=== PATIENT | male | born 1955 | race Caucasian/White ===

== ENCOUNTER → 2018-06-09 08:15 | Outpatient (CLI) | payer BC, SELFPAY ==
--- NOTE | 2018-06-09 09:35 | PM.TREADMILL ---
Cardiac Stress Test Report Referral & Results Date Patient Seen: 06/09/18 Requesting provider: Jeremie Gurrola Indication: Chest pain with activity Rest ECG: Unremarkable Procedure Note: Today following both written and verbal informed consent the patient was exercised according to a standard Jean protocol patient went for a total of 8 min 26 sec achieving a maximum heart rate of 137 maximum systolic blood pressure of 160. This is approximately 10.1 METS. Exercise was terminated at this point because of ST changes targets were met and mild chest symptoms. Patient was also given Cardiolite through a previously started Hep-Lock IV by the staff nuclear medicine technologist approximately 1 minute prior to the cessation of exercise. Patient did experience to/10 chest discomfort during the procedure that had onset just after the ST segment changes began. There were up to 3 mm of flat to slightly downsloping ST segment depression in leads V4 through V6 with reciprocal changes in inferior leads to a slightly lesser extent. In recovery these ST changes became much more clearly downsloping Occasional PVC and PAC Functional aerobic impairment rated 0 on the active scale Normal heart rate and blood pressure response to exercise Impression: Ischemic changes as above beginning in lateral leads and associated with patient's symptoms Please see perfusion imaging report for details regarding possible ischemia based on that modality Patient was informed of the ECG results and was instructed to seek immediate care for persistent or worsening chest symptoms The positive ECG findings were also discussed with ordering provider, Dr. Gurrola, via phone immediately following the procedure. Please note: Actual ECG tracings can be found in the PACS system.
--- NOTE | 2018-06-09 09:38 | P.PCN_ITS ---
Cardiac Stress Test Report Referral & Results Date Patient Seen: 06/09/18 Requesting provider: Jeremie Gurrola Indication: Chest pain with activity Rest ECG: Unremarkable Procedure Note: Today following both written and verbal informed consent the patient was exercised according to a standard Jean protocol patient went for a total of 8 min 26 sec achieving a maximum heart rate of 137 maximum systolic blood pressure of 160. This is approximately 10.1 METS. Exercise was terminated at this point because of ST changes targets were met and mild chest symptoms. Patient was also given Cardiolite through a previously started Hep-Lock IV by the nuclear logging engineer approximately 1 minute prior to the cessation of exercise. Patient did experience to/10 chest discomfort during the procedure that had onset just after the ST segment changes began. There were up to 3 mm of flat to slightly downsloping ST segment depression in leads V4 through V6 with rec iprocal changes in inferior leads to a slightly lesser extent. In recovery these ST changes became much more clearly downsloping Occasional PVC and PAC Functional aerobic impairment rated 0 on the active scale Normal heart rate and blood pressure response to exercise Impression: Ischemic changes as above beginning in lateral leads and associated with patient's symptoms Please see perfusion imaging report for details regarding possible ischemia based on that modality Patient was informed of the ECG results and was instructed to seek immediate care for persistent or worsening chest symptoms The positive ECG findings were also discussed with ordering provider, Dr. Gurrola, via phone immediately following the procedure. Please note: Actual ECG tracings can be found in the PACS system.
--- NOTE | 2018-06-10 14:27 | DI.NM.S_ITS ---
DATE OF SERVICE: 06/09/2018 PROCEDURE: Exercise perfusion study. INDICATION: Exertional angina with hyperlipidemia. RADIOPHARMACEUTICAL: 24.9 mCi technetium-99m Myoview IV was injected at stress, and 23.9 mCi technetium-99m Myoview was injected at rest. CARDIAC STRESS: Patient underwent exercise Myoview stress test under the supervision of an attending staff, Dr. Gardiner. Patient walked on Jean protocol for 8 minutes 26 seconds, achieved 87% of target heart rate, normal blood pressure response. Patient developed chest discomfort during exercise. Baseline EKG revealed sinus rhythm. During peak exercise, patient had up to 3-[address] depression in inferolateral leads as well as about 1-mm ST elevation in AVR and V1 to V2. Recovery was very prolonged. No significant arrhythmias seen. Functional aerobic impairment 0%. Patient achieved 10.1 METS of workload. RAW DATA: There was increased subdiaphragmatic activity. GATED STUDY: Resting LV ejection fraction 63% and stress LV ejection fraction 59% with hypokinesis of anterior wall septum during stress. TID ratio 1.44, which is abnormal. Resting end-diastolic volume 104 mL. Lung/heart ratio 0.37, which is within normal limits. MYOCARDIAL PERFUSION SCAN: Stress supine, resting supine, and stress prone images were compared to each other. Resting supine images revealed moderate- sized moderately decreased perfusion of inferior wall basal inferior septum, which got completely resolved during prone images, suggestive of diaphragmatic attenuation artifact; however, prone and stress supine images revealed large- sized severely decreased perfusion of anterior wall, anterior apex, as well as anterior septum, which is reversible, suggestive of significant either ostial or proximal LAD disease. CONCLUSION: This is an significantly abnormal myocardial perfusion study, consistent with large severe reversible ischemia of entire anterior wall, anterior septum, anterior apex, suggestive of ostial or proximal LAD disease. Patient also has diaphragmatic tissue attenuation artifact which got improved during prone images. Significant ST depression in inferolateral leads up to 4 mm as well as 1-mm ST elevation in AVR and V1 to V2 during stress. Patient had chest discomfort during exercise. Transient ischemic dilatation with TID ratio 1.4. We cannot rule out possibility of left main disease or multivessel coronary artery disease. I discussed the finding with the patient in the nuclear lab and sent patient to the ER, from where he will be transferred to one of the hospitals where he can have left heart catheterization and possible revascularization. Patient wants to go to [facility]. I spoke to [facility] ER physician, Dr. Jessica, and she will take care of the patient and transfer. Jesus Alberto Tejeda - THO/cristo/donna doc#: [id number]/job#: [id number] dd: 06/10/2018 12:35:00 dt: 06/10/2018 13:46:00 DICTATING MD/COPIES TO: Komal Espinosa MD ; Jeremie Gurrola MD COPIES MNE: CHETAN ; FELI
== END ==
PROVIDERS: Family Provider Family Medicine; PCP Family Medicine; Visit Provider Family Medicine
DX: I20.8 Other forms of angina pectoris (principal); R94.39 Abnormal result of other cardiovascular function study; R94.31 Abnormal electrocardiogram [ECG] [EKG]; E78.5 Hyperlipidemia, unspecified
CPT/HCPCS: 78452; 93016; 93017; 93018; A9502

== ENCOUNTER 2018-06-10 12:30 | Emergency (ER) | payer BC, SELFPAY ==
[2018-06-10 12:36] VITALS: BP 148/86; PULSE 56; RESP 20; TEMP 36.2; O2SAT 100
--- NOTE | 2018-06-10 13:02 | ED.CHESTPAIN ---
HPI - Chest Pain <JOYCE White - Last Filed: 06/10/18 15:29> General Chief Complaint: Chest Pain Stated Complaint: DR RUIZ SAID NEEDS HEART CATH Time Seen by Provider: 06/10/18 13:02 Source: patient Mode of arrival: ambulatory Limitations: no limitations History of Present Illness HPI narrative: 62-year-old male with a history of hyperlipidemia and is a former smoker sent here by Dr. Ruiz due to having a positive results and stress test earlier today. He reports that stress that showed 3mm depressions to the inferior and lateral leads and [address]-elevation to AVR ejection fraction was 59%. Patient denies any chest pain at this time pain. He denies any shortness of breath. He was ambulatory into the emergency room. He was obtaining stress test due to reports of having some mild chest pain while he was going on long walks. No nausea vomiting. No diaphoresis. Patient has no physical complaints at this timeframe. It is requested that he be transferred to a director of cath lab. And be started on heparin drip. MD complaint: other Related Data Home Medications Medication Instructions Recorded Confirmed brimonidine-timolol [Combigan] 1 drp OPHTHALMIC (EYE) DIRECTED 06/10/18 06/10/18 fluticasone propionate 1 spray INTRANASAL DAILY 06/10/18 ropinirole 2 mg PO DAILY 06/10/18 06/10/18 tamsulosin 0.4 mg PO DAILY 06/10/18 06/10/18 Allergies Allergy/AdvReac Type Severity Reaction Status Date / Time No Known Drug Allergies Allergy Verified 06/10/18 13:21 Review of Systems <JOYCE White - Last Filed: 06/10/18 15:29> Constitutional Denies chills, Denies fever(s), Denies lethargy and Denies weakness Eyes Denies change in vision, Denies eye discharge, Denies irritation and Denies loss of vision ENT Ears, Nose, Mouth, and Throat: Denies change in voice, Denies neck pain and Denies sore throat Cardiovascular Denies dyspnea and Denies dyspnea on exertion Comments: ST changes on a stress test Respiratory Denies cough, Denies dyspnea, Denies dyspnea on exertion and Denies wheezing Gastrointestinal Gastrointestinal: Denies abdominal pain, Denies change in bowel habits, Denies diarrhea, Denies nausea and Denies vomiting Genitourinary Denies hematuria, Denies flank pain, Denies urinary incontinence and Denies urinary urgency Musculoskeletal Denies neck pain Integumentary/Breasts Denies pruritus, Denies erythema, Denies rash and Denies wounds Neurologic Denies confusion, Denies loss of vision and Denies weakness Psychiatric Denies anxiety, Denies confusion, Denies depression, Denies homicidal ideation and Denies suicidal ideation Hematologic/Lymphatic Denies easy bruising Allergic/Immunologic Denies wheezing PFSH <JOYCE White - Last Filed: 06/10/18 15:29> Social History Smoking Status: Former smoker Social History Smoking Status: Former smoker Exam <JOYCE White - Last Filed: 06/10/18 15:29> Initial Vital Signs Initial Vital Signs: Vital Signs Temperature 97.2 F L 06/10/18 12:36 Pulse Rate 56 L 06/10/18 12:36 Respiratory Rate 20 06/10/18 12:36 Blood Pressure 148/86 H 06/10/18 12:36 Pulse Oximetry 100 06/10/18 12:36 Const General: cooperative and well developed Nutritional Appearance: well nourished Orientation: alert, awake, oriented x3 and not confused HENVA Mouth: oral mucosae normal and moist mucous membranes Eyes Conjunctivae: conjunctivae normal Sclera: sclerae normal Pupils: PERRL EOM: EOM intact bilaterally Resp Effort & Inspection: normal respiratory effort, able to speak in complete sentences, no respiratory distress and no use of accessory muscles Auscultation: clear to auscultation bilaterally, no rales, no rhonchi and no wheezes Cardio Rate: regular rate Rhythm: regular rhythm Heart Sounds: no click, no gallops, no murmurs and no rubs Pulses: normal peripheral pulses Neuro General: alert, oriented x3, gait normal and no focal motor deficits Speech: speech normal <Luisa Jessica DO - Last Filed: 06/11/18 11:10> Initial Vital Signs Initial Vital Signs: Vital Signs Temperature 97.2 F L 06/10/18 12:36 Pulse Rate 56 L 06/10/18 12:36 Respiratory Rate 20 06/10/18 12:36 Blood Pressure 148/86 H 06/10/18 12:36 Pulse Oximetry 100 06/10/18 12:36 Course <JOYCE White - Last Filed: 06/10/18 15:29> Orders Ordered: Discontinued Medications Aspirin (Aspirin Chew) 324 mg PO NOW ONE Stop: 06/10/18 13:11 Last Admin: 06/10/18 13:32 Dose: 324 mg Heparin Sodium (Porcine) (Heparin) 5,000 unit IV NOW ONE Stop: 06/10/18 13:11 Last Admin: 06/10/18 13:59 Dose: 5,000 unit Heparin Sodium/Dextrose (Heparin Drip) 25,000 unit in 500 mls @ 20 mls/hr IV CONT KIA; Protocol Last Admin: 06/10/18 13:59 Dose: 1,000 units/hr, 20 mls/hr Vital Signs - 8 hr 06/10/18 12:36 06/10/18 14:21 Temperature 97.2 F L Pulse Rate 56 L 64 Respiratory Rate 20 10 L Blood Pressure 148/86 H Blood Pressure [Right Arm] 132/88 Pulse Oximetry 100 97 <Luisa Jessica DO - Last Filed: 06/11/18 11:10> Orders Ordered: Discontinued Medications Aspirin (Aspirin Chew) 324 mg PO NOW ONE Stop: 06/10/18 13:11 Last Admin: 06/10/18 13:32 Dose: 324 mg Heparin Sodium (Porcine) (Heparin) 5,000 unit IV NOW ONE Stop: 06/10/18 13:11 Last Admin: 06/10/18 13:59 Dose: 5,000 unit Heparin Sodium/Dextrose (Heparin Drip) 25,000 unit in 500 mls @ 20 mls/hr IV CONT KIA; Protocol Last Admin: 06/10/18 13:59 Dose: 1,000 units/hr, 20 mls/hr Vital Signs - 8 hr 06/10/18 12:36 06/10/18 14:21 Temperature 97.2 F L Pulse Rate 56 L 64 Respiratory Rate 20 10 L Blood Pressure 148/86 H Blood Pressure [Right Arm] 132/88 Pulse Oximetry 100 97 MDM - Chest Pain <JOYCE White - Last Filed: 06/10/18 15:29> Lab Data Result diagrams: 06/10/18 13:30 06/10/18 13:30 Lab Results 06/10/18 06/10/18 Range/Units 13:30 13:30 WBC 7.3 (4.5-11.0) X10^3/uL RBC 5.20 (4.5-5.9) X10^6/uL Hgb 15.8 (13.5-17.5) g/dL Hct 47.3 (41-53) % MCV 90.9 (80-100) fL MCH 30.3 (26-34) PG MCHC 33.3 (30-36) % RDW 13.8 (11.6-14.8) % Plt Count 187 (150-400) X10^3/uL Neut % (Auto) 57.5 (50-75) % Lymph % (Auto) 30.5 (25-40) % [place] % (Auto) 8.9 (3-14) % Eos % (Auto) 2.3 (2-4) % Baso % (Auto) 0.8 (0-2) % Neut # (Auto) 4200 (7125-9837) /uL Lymph # (Auto) 2200 (7593-0116) /uL [place] # (Auto) 600 (0-900) /uL Eos # (Auto) 200 (0-450) /uL Baso # (Auto) 100 (0-100) /uL Sodium 140 (137-145) mmol/L Potassium 4.3 (3.4-5.1) mmol/L Chloride 104 (98-107) mmol/L Carbon Dioxide 25 (22-32) mmol/L BUN 20 (9-20) mg/dL Creatinine 0.80 (0.66-1.25) mg/dL Estimated GFR > 60.0 (>60) mL/min BUN/Creatinine Ratio 25.0 H (6-22) Glucose 101 (80-110) mg/dL Calcium 9.5 (8.4-10.2) mg/dL Total Bilirubin 0.6 (0.2-1.3) mg/dL AST 22 (17-59) IU/L ALT 31 (21-72) IU/L Alkaline Phosphatase 66 (38-126) U/L Total Creatine Kinase 77 (55-170) U/L CK-MB (CK-2) TNP CK-MB (CK-2) Rel Index TNP Troponin I < 0.012 (0.01-0.034) ng/mL Total Protein 7.8 (6.3-8.2) g/dL Albumin 4.6 (3.5-5.0) g/dL Globulin 3.2 (1.7-4.1) g/dL Albumin/Globulin Ratio 1.4 (1.0-2.8) Lipase 52 (23-300) U/L Urine Dip Bedside Urine Glucose Negative Bedside Urine Bilirubin - Negative Bedside Urine Ketone - Negative Urine Specific [place] 1.015 Bedside Urine Occult Blood - Negative Bedside Urine pH 6.5 Bedside Urine Protein - Negative Bedside Urine Urobilinogen - Negative Bedside Urine Nitrite - Negative Bedside Urine Leukocytes - Negative Esterase Imaging Data Chest x-ray: Radiologist's impression: [address] [address] XRay Report Signed Patient: Jesus Alberto Tejeda EMR#: [id number] : 5Acct:[id number] Age/Sex: 62 / MDate of Service: 06/10/18 Loc: ED Accession Number: [id number] Procedure: XR chest 1V Ordering Provider: Kristopher Cobb PROCEDURE: XR CHEST 1V INDICATIONS: Positive stress test today TECHNIQUE: One view of the chest was acquired. COMPARISON: None. FINDINGS: Surgical changes and devices: None. Lungs and pleura: There is minimal blunting of the left costophrenic angle. Mediastinum: Mediastinal contours appear normal. Heart size is minimally prominent. Bones and chest wall: No suspicious bony lesions. Overlying soft tissues appear unremarkable. IMPRESSION: Minimal blunting of the left costophrenic angle possibly related to scarring versus trace effusion. Dictated by: Rosana Roque M.D. on 06/10/2018 at 12:30 Approved by: Rosana Roque M.D. on 06/10/2018 at 12:31 ECG Data Interpretation: EKG shows sinus bradycardia with no ST elevation or depression. No ectopy. Ventricular rate of 58. Pr interval 157. QRS duration of 92. QTC of 422 P Surgical changes and devices: None. MDM Narrative Medical decision making narrative: Stress test today showed ST elevation and depression changes. Dr. nakita shah was called into the room to see the changes and he was very concerned about the changes he saw and requested the patient get sent to cardiac director of cath lab and get placed on heparin. Patient does not desire to go to [facility] he would rather go to [place] or to [facility]. EKG in the emergency room shows sinus rhythm with no ST elevation or depression. No ectopy. Patient is not complaining of chest pain at this time. CBC and Chem panel were obtained were unremarkable. Cardiac enzymes were obtained and were negative. Heparin was initiated in the emergency room. Chest x-ray was obtained and was unremarkable. Discussed case with cardiology at [facility] who accepted patient he is transferred to [facility] for catheterization and further evaluation. Patient is sent via [facility] <Luisa Jessica DO - Last Filed: 06/11/18 11:10> Lab Data Attestation: I reviewed the patient's lab results. Lab Results 06/10/18 06/10/18 Range/Units 13:30 13:30 WBC 7.3 (4.5-11.0) X10^3/uL RBC 5.20 (4.5-5.9) X10^6/uL Hgb 15.8 (13.5-17.5) g/dL Hct 47.3 (41-53) % MCV 90.9 (80-100) fL MCH 30.3 (26-34) PG MCHC 33.3 (30-36) % RDW 13.8 (11.6-14.8) % Plt Count 187 (150-400) X10^3/uL Neut % (Auto) 57.5 (50-75) % Lymph % (Auto) 30.5 (25-40) % [place] % (Auto) 8.9 (3-14) % Eos % (Auto) 2.3 (2-4) % Baso % (Auto) 0.8 (0-2) % Neut # (Auto) 4200 (9380-7157) /uL Lymph # (Auto) 2200 (3263-4836) /uL [place] # (Auto) 600 (0-900) /uL Eos # (Auto) 200 (0-450) /uL Baso # (Auto) 100 (0-100) /uL Sodium 140 (137-145) mmol/L Potassium 4.3 (3.4-5.1) mmol/L Chloride 104 (98-107) mmol/L Carbon Dioxide 25 (22-32) mmol/L BUN 20 (9-20) mg/dL Creatinine 0.80 (0.66-1.25) mg/dL Estimated GFR > 60.0 (>60) mL/min BUN/Creatinine Ratio 25.0 H (6-22) Glucose 101 (80-110) mg/dL Calcium 9.5 (8.4-10.2) mg/dL Total Bilirubin 0.6 (0.2-1.3) mg/dL AST 22 (17-59) IU/L ALT 31 (21-72) IU/L Alkaline Phosphatase 66 (38-126) U/L Total Creatine Kinase 77 (55-170) U/L CK-MB (CK-2) TNP CK-MB (CK-2) Rel Index TNP Troponin I < 0.012 (0.01-0.034) ng/mL Total Protein 7.8 (6.3-8.2) g/dL Albumin 4.6 (3.5-5.0) g/dL Globulin 3.2 (1.7-4.1) g/dL Albumin/Globulin Ratio 1.4 (1.0-2.8) Lipase 52 (23-300) U/L Urine Dip Bedside Urine Glucose Negative Bedside Urine Bilirubin - Negative Bedside Urine Ketone - Negative Urine Specific [place] 1.015 Bedside Urine Occult Blood - Negative Bedside Urine pH 6.5 Bedside Urine Protein - Negative Bedside Urine Urobilinogen - Negative Bedside Urine Nitrite - Negative Bedside Urine Leukocytes - Negative Esterase ECG Data Attestation: I personally reviewed and interpreted this ECG as follows: Prior ECG tracings: not available for review Interpretation: Normal sinus rhythm rate [address] changes a no T-wave inversion MDM Narrative Medical decision making narrative: There was some difficulty getting patient to [facility]. The stress test was not yet dictated cardiology called prior to patient's arrival to the ED and read to me what the stress test showed. It was recommended by the reading stress test supervisor inspecting , patient immediately be started on been given aspirin and treated for acute coronary syndrome. Eventually supervisor inspecting spoke to each other and patient was transferred without problem to [facility]. Discharge Plan Departure Patient Disposition: [facility] Clinical Impression: Abnormal cardiovascular stress test Discharge Date/Time: 06/10/18 18:38 Interventions: ED Discharge Assessment Last Done: 06/10/18 18:36 Prescriptions: No Action tamsulosin 0.4 mg capsule 0.4 mg PO DAILY RF: 0 ropinirole 2 mg tablet 2 mg PO DAILY RF: 0 Combigan 0.2-0.5 % drops 1 drp ophthalmic (eye) DIRECTED RF: 0 fluticasone propionate 16 GM spray,suspension 1 spray Intranasal DAILY RF: 0 Referrals: Jeremie Gurrola MD [Primary Care Provider] - <Luisa Jessica DO - Last Filed: 06/11/18 11:10> Cosign ED Attending Cosignature Attestation: I was immediately available in the department for consultation. Documentation has been reviewed. I agree with assessment and plan.
--- NOTE | 2018-06-10 13:11 | DI.RAD.S_ITS ---
PROCEDURE: XR CHEST 1V INDICATIONS: Positive stress test today TECHNIQUE: One view of the chest was acquired. COMPARISON: None. FINDINGS: Surgical changes and devices: None. Lungs and pleura: There is minimal blunting of the left costophrenic angle. Mediastinum: Mediastinal contours appear normal. Heart size is minimally prominent. Bones and chest wall: No suspicious bony lesions. Overlying soft tissues appear unremarkable. IMPRESSION: Minimal blunting of the left costophrenic angle possibly related to scarring versus trace effusion. Dictated by: Rosana Roque M.D. on 06/10/2018 at 12:30 Approved by: Rosana Roque M.D. on 06/10/2018 at 12:31
[2018-06-10] MEDS: ASPIRIN 81 MG TAB 324 MG PO (13:32)
[2018-06-10 13:37] LABS: Add Manual Diff / Slide Review NO; Basophils Absolute Auto 100 /uL (0-100); Basophils Percent Auto 0.8 % (0-2); Eosinophils Absolute Auto 200 /uL (0-450); Eosinophils Percent Auto 2.3 % (2-4); Hematocrit 47.3 % (41-53); Hemoglobin 15.8 g/dL (13.5-17.5); Lymphocytes Absolute Auto 2200 /uL (1100-4500); Lymphocytes Percent Auto 30.5 % (25-40); Mean Corpuscular HGB Conc 33.3 % (30-36); Mean Corpuscular Hemoglobin 30.3 PG (26-34); Mean Corpuscular Volume 90.9 fL (80-100); Monocytes Absolute Auto 600 /uL (0-900); Monocytes Percent Auto 8.9 % (3-14); Neutrophils Absolute Auto 4200 /uL (1500-7000); Neutrophils Percent Auto 57.5 % (50-75); Platelet Count 187 X10^3/uL (150-400); Red Cell Distribution Width 13.8 % (11.6-14.8); White Blood Cell Count 7.3 X10^3/uL (4.5-11.0)
[2018-06-10 13:50] LABS: Alanine Aminotransferase 31 IU/L (21-72); Albumin 4.6 g/dL (3.5-5.0); Albumin Globulin Ratio 1.4 (1.0-2.8); Alkaline Phosphatase 66 U/L (38-126); Aspartate Aminotransferase 22 IU/L (17-59); Bilirubin Total 0.6 mg/dL (0.2-1.3); Blood Urea Nitrogen 20 mg/dL (9-20); Calcium 9.5 mg/dL (8.4-10.2); Carbon Dioxide 25 mmol/L (22-32); Chloride 104 mmol/L (98-107); Creatine Kinase 77 U/L (55-170); Estimated Glomerular Filt Rate > 60.0 mL/min (>60); Globulin 3.2 g/dL (1.7-4.1); Glucose 101 mg/dL (80-110); HEMOLYSIS 20 (0-50); Lipase 52 U/L (23-300); Potassium 4.3 mmol/L (3.4-5.1); Sodium 140 mmol/L (137-145); Total Protein 7.8 g/dL (6.3-8.2)
--- NOTE | 2018-06-10 13:58 | ED_ITS ---
HPI - Chest Pain <JOYCE White - Last Filed: 06/10/18 15:29> General Chief Complaint: Chest Pain Stated Complaint: DR RUIZ SAID NEEDS HEART CATH Time Seen by Provider: 06/10/18 13:02 Source: patient Mode of arrival: ambulatory Limitations: no limitations History of Present Illness HPI narrative: 62-year-old male with a history of hyperlipidemia and is a former smoker sent here by Dr. Ruiz due to having a positive results and stress test earlier today. He reports that stress that showed 3mm depressions to the inferior and lateral leads and [address]-elevation to AVR ejection fraction was 59%. Patient denies any chest pain at this time pain. He denies any shortness of breath. He was ambulatory into the emergency room. He was obtaining stress test due to reports of having some mild chest pain while he was going on long walks. No nausea vomiting. No diaphoresis. Patient has no physical complaints at this timeframe. It is requested that he be transferred to a ammunition assembly laborer. And be started on heparin drip. MD complaint: other Related Data Home Medications Medication Instructions Recorded Confirmed brimonidine-timolol [Combigan] 1 drp OPHTHALMIC (EYE) DIRECTED 06/10/18 06/10/18 fluticasone propionate 1 spray INTRANASAL DAILY 06/10/18 ropinirole 2 mg PO DAILY 06/10/18 06/10/18 tamsulosin 0.4 mg PO DAILY 06/10/18 06/10/18 Allergies Allergy/AdvReac Type Severity Reaction Status Date / Time No Known Drug Allergies Allergy Verified 06/10/18 13:21 Review of Systems <JOYCE White - Last Filed: 06/10/18 15:29> Constitutional Denies chills, Denies fever(s), Denies lethargy and Denies weakness Eyes Denies change in vision, Denies eye discharge, Denies irritation and Denies loss of vision ENT Ears, Nose, Mouth, and Throat: Denies change in voice, Denies neck pain and Denies sore throat Cardiovascular Denies dyspnea and Denies dyspnea on exertion Comments: ST changes on a stress test Respiratory Denies cough, Denies dyspnea, Denies dyspnea on exertion and Denies wheezing Gastrointestinal Gastrointestinal: Denies abdominal pain, Denies change in bowel habits, Denies diarrhea, Denies nausea and Denies vomiting Genitourinary Denies hematuria, Denies flank pain, Denies urinary incontinence and Denies urinary urgency Musculoskeletal Denies neck pain Integumentary/Breasts Denies pruritus, Denies erythema, Denies rash and Denies wounds Neurologic Denies confusion, Denies loss of vision and Denies weakness Psychiatric Denies anxiety, Denies confusion, Denies depression, Denies homicidal ideation and Denies suicidal ideation Hematologic/Lymphatic Denies easy bruising Allergic/Immunologic Denies wheezing PFSH <JOYCE White - Last Filed: 06/10/18 15:29> Social History Smoking Status: Former smoker Social History Smoking Status: Former smoker Exam <JOYCE White - Last Filed: 06/10/18 15:29> Initial Vital Signs Initial Vital Signs: Vital Signs Temperature 97.2 F L 06/10/18 12:36 Pulse Rate 56 L 06/10/18 12:36 Respiratory Rate 20 06/10/18 12:36 Blood Pressure 148/86 H 06/10/18 12:36 Pulse Oximetry 100 06/10/18 12:36 Const General: cooperative and well developed Nutritional Appearance: well nourished Orientation: alert, awake, oriented x3 and not confused HENNH Mouth: oral mucosae normal and moist mucous membranes Eyes Conjunctivae: conjunctivae normal Sclera: sclerae normal Pupils: PERRL EOM: EOM intact bilaterally Resp Effort & Inspection: normal respiratory effort, able to speak in complete sentences, no respiratory distress and no use of accessory muscles Auscultation: clear to auscultation bilaterally, no rales, no rhonchi and no wheezes Cardio Rate: regular rate Rhythm: regular rhythm Heart Sounds: no click, no gallops, no murmurs and no rubs Pulses: normal peripheral pulses Neuro General: alert, oriented x3, gait normal and no focal motor deficits Speech: speech normal <Luisa Jessica DO - Last Filed: 06/11/18 11:10> Initial Vital Signs Initial Vital Signs: Vital Signs Temperature 97.2 F L 06/10/18 12:36 Pulse Rate 56 L 06/10/18 12:36 Respiratory Rate 20 06/10/18 12:36 Blood Pressure 148/86 H 06/10/18 12:36 Pulse Oximetry 100 06/10/18 12:36 Course <JOYCE White - Last Filed: 06/10/18 15:29> Orders Ordered: Discontinued Medications Aspirin (Aspirin Chew) 324 mg PO NOW ONE Stop: 06/10/18 13:11 Last Admin: 06/10/18 13:32 Dose: 324 mg Heparin Sodium (Porcine) (Heparin) 5,000 unit IV NOW ONE Stop: 06/10/18 13:11 Last Admin: 06/10/18 13:59 Dose: 5,000 unit Heparin Sodium/Dextrose (Heparin Drip) 25,000 unit in 500 mls @ 20 mls/hr IV CONT KIA; Protocol Last Admin: 06/10/18 13:59 Dose: 1,000 units/hr, 20 mls/hr Vital Signs - 8 hr 06/10/18 12:36 06/10/18 14:21 Temperature 97.2 F L Pulse Rate 56 L 64 Respiratory Rate 20 10 L Blood Pressure 148/86 H Blood Pressure [Right Arm] 132/88 Pulse Oximetry 100 97 <Luisa Jessica DO - Last Filed: 06/11/18 11:10> Orders Ordered: Discontinued Medications Aspirin (Aspirin Chew) 324 mg PO NOW ONE Stop: 06/10/18 13:11 Last Admin: 06/10/18 13:32 Dose: 324 mg Heparin Sodium (Porcine) (Heparin) 5,000 unit IV NOW ONE Stop: 06/10/18 13:11 Last Admin: 06/10/18 13:59 Dose: 5,000 unit Heparin Sodium/Dextrose (Heparin Drip) 25,000 unit in 500 mls @ 20 mls/hr IV CONT KIA; Protocol Last Admin: 06/10/18 13:59 Dose: 1,000 units/hr, 20 mls/hr Vital Signs - 8 hr 06/10/18 12:36 06/10/18 14:21 Temperature 97.2 F L Pulse Rate 56 L 64 Respiratory Rate 20 10 L Blood Pressure 148/86 H Blood Pressure [Right Arm] 132/88 Pulse Oximetry 100 97 MDM - Chest Pain <JOYCE White - Last Filed: 06/10/18 15:29> Lab Data Result diagrams: 06/10/18 13:30 06/10/18 13:30 Lab Results 06/10/18 06/10/18 Range/Units 13:30 13:30 WBC 7.3 (4.5-11.0) X10^3/uL RBC 5.20 (4.5-5.9) X10^6/uL Hgb 15.8 (13.5-17.5) g/dL Hct 47.3 (41-53) % MCV 90.9 (80-100) fL MCH 30.3 (26-34) PG MCHC 33.3 (30-36) % RDW 13.8 (11.6-14.8) % Plt Count 187 (150-400) X10^3/uL Neut % (Auto) 57.5 (50-75) % Lymph % (Auto) 30.5 (25-40) % [place] % (Auto) 8.9 (3-14) % Eos % (Auto) 2.3 (2-4) % Baso % (Auto) 0.8 (0-2) % Neut # (Auto) 4200 (3836-1038) /uL Lymph # (Auto) 2200 (6826-1456) /uL [place] # (Auto) 600 (0-900) /uL Eos # (Auto) 200 (0-450) /uL Baso # (Auto) 100 (0-100) /uL Sodium 140 (137-145) mmol/L Potassium 4.3 (3.4-5.1) mmol/L Chloride 104 (98-107) mmol/L Carbon Dioxide 25 (22-32) mmol/L BUN 20 (9-20) mg/dL Creatinine 0.80 (0.66-1.25) mg/dL Estimated GFR > 60.0 (>60) mL/min BUN/Creatinine Ratio 25.0 H (6-22) Glucose 101 (80-110) mg/dL Calcium 9.5 (8.4-10.2) mg/dL Total Bilirubin 0.6 (0.2-1.3) mg/dL AST 22 (17-59) IU/L ALT 31 (21-72) IU/L Alkaline Phosphatase 66 (38-126) U/L Total Creatine Kinase 77 (55-170) U/L CK-MB (CK-2) TNP CK-MB (CK-2) Rel Index TNP Troponin I < 0.012 (0.01-0.034) ng/mL Total Protein 7.8 (6.3-8.2) g/dL Albumin 4.6 (3.5-5.0) g/dL Globulin 3.2 (1.7-4.1) g/dL Albumin/Globulin Ratio 1.4 (1.0-2.8) Lipase 52 (23-300) U/L Urine Dip Bedside Urine Glucose Negative Bedside Urine Bilirubin - Negative Bedside Urine Ketone - Negative Urine Specific [place] 1.015 Bedside Urine Occult Blood - Negative Bedside Urine pH 6.5 Bedside Urine Protein - Negative Bedside Urine Urobilinogen - Negative Bedside Urine Nitrite - Negative Bedside Urine Leukocytes - Negative Esterase Imaging Data Chest x-ray: Radiologist's impression: [address] [address] XRay Report Signed Patient: Jesus Alberto Tejeda EMR#: [id number] : 5Acct:[id number] Age/Sex: 62 / MDate of Service: 06/10/18 Loc: ED Accession Number: [id number] Procedure: XR chest 1V Ordering Provider: Kristopher Cobb PROCEDURE: XR CHEST 1V INDICATIONS: Positive stress test today TECHNIQUE: One view of the chest was acquired. COMPARISON: None. FINDINGS: Surgical changes and devices: None. Lungs and pleura: There is minimal blunting of the left costophrenic angle. Mediastinum: Mediastinal contours appear normal. Heart size is minimally prominent. Bones and chest wall: No suspicious bony lesions. Overlying soft tissues appear unremarkable. IMPRESSION: Minimal blunting of the left costophrenic angle possibly related to scarring versus trace effusion. Dictated by: Rosana Roque M.D. on 06/10/2018 at 12:30 Approved by: Rosana Roque M.D. on 06/10/2018 at 12:31 ECG Data Interpretation: EKG shows sinus bradycardia with no ST elevation or depression. No ectopy. Ventricular rate of 58. Pr interval 157. QRS duration of 92. QTC of 422 P Surgical changes and devices: None. MDM Narrative Medical decision making narrative: Stress test today showed ST elevation and depression changes. Dr. nakita shah was called into the room to see the changes and he was very concerned about the changes he saw and requested the patient get sent to cardiac ammunition assembly laborer and get placed on heparin. Patient does not desire to go to [facility] he would rather go to [facility] or to [facility]. EKG in the emergency room shows sinus rhythm with no ST elevation or depression. No ectopy. Patient is not complaining of chest pain at this time. CBC and Chem panel were obtained were unremarkable. Cardiac enzymes were obtained and were negative. Heparin was initiated in the emergency room. Chest x-ray was obtained and was unremarkable. Discussed case with cardiology at [facility] who accepted patient he is transferred to [facility] for catheterization and further evaluation. Patient is sent via [facility] <Luisa Jessica DO - Last Filed: 06/11/18 11:10> Lab Data Attestation: I reviewed the patient's lab results. Lab Results 06/10/18 06/10/18 Range/Units 13:30 13:30 WBC 7.3 (4.5-11.0) X10^3/uL RBC 5.20 (4.5-5.9) X10^6/uL Hgb 15.8 (13.5-17.5) g/dL Hct 47.3 (41-53) % MCV 90.9 (80-100) fL MCH 30.3 (26-34) PG MCHC 33.3 (30-36) % RDW 13.8 (11.6-14.8) % Plt Count 187 (150-400) X10^3/uL Neut % (Auto) 57.5 (50-75) % Lymph % (Auto) 30.5 (25-40) % [place] % (Auto) 8.9 (3-14) % Eos % (Auto) 2.3 (2-4) % Baso % (Auto) 0.8 (0-2) % Neut # (Auto) 4200 (9116-1544) /uL Lymph # (Auto) 2200 (5059-9566) /uL [place] # (Auto) 600 (0-900) /uL Eos # (Auto) 200 (0-450) /uL Baso # (Auto) 100 (0-100) /uL Sodium 140 (137-145) mmol/L Potassium 4.3 (3.4-5.1) mmol/L Chloride 104 (98-107) mmol/L Carbon Dioxide 25 (22-32) mmol/L BUN 20 (9-20) mg/dL Creatinine 0.80 (0.66-1.25) mg/dL Estimated GFR > 60.0 (>60) mL/min BUN/Creatinine Ratio 25.0 H (6-22) Glucose 101 (80-110) mg/dL Calcium 9.5 (8.4-10.2) mg/dL Total Bilirubin 0.6 (0.2-1.3) mg/dL AST 22 (17-59) IU/L ALT 31 (21-72) IU/L Alkaline Phosphatase 66 (38-126) U/L Total Creatine Kinase 77 (55-170) U/L CK-MB (CK-2) TNP CK-MB (CK-2) Rel Index TNP Troponin I < 0.012 (0.01-0.034) ng/mL Total Protein 7.8 (6.3-8.2) g/dL Albumin 4.6 (3.5-5.0) g/dL Globulin 3.2 (1.7-4.1) g/dL Albumin/Globulin Ratio 1.4 (1.0-2.8) Lipase 52 (23-300) U/L Urine Dip Bedside Urine Glucose Negative Bedside Urine Bilirubin - Negative Bedside Urine Ketone - Negative Urine Specific [place] 1.015 Bedside Urine Occult Blood - Negative Bedside Urine pH 6.5 Bedside Urine Protein - Negative Bedside Urine Urobilinogen - Negative Bedside Urine Nitrite - Negative Bedside Urine Leukocytes - Negative Esterase ECG Data Attestation: I personally reviewed and interpreted this ECG as follows: Prior ECG tracings: not available for review Interpretation: Normal sinus rhythm rate [address] changes a no T-wave inversion MDM Narrative Medical decision making narrative: There was some difficulty getting patient to [facility]. The stress test was not yet dictated cardiology called prior to patient's arrival to the ED and read to me what the stress test showed. It was recommended by the reading stress test toby maker , patient immediately be started on been given aspirin and treated for acute coronary syndrome. Eventually toby maker spoke to each other and patient was transferred without problem to [facility]. Discharge Plan Departure Patient Disposition: [facility] Clinical Impression: Abnormal cardiovascular stress test Discharge Date/Time: 06/10/18 18:38 Interventions: ED Discharge Assessment Last Done: 06/10/18 18:36 Prescriptions: No Action tamsulosin 0.4 mg capsule 0.4 mg PO DAILY RF: 0 ropinirole 2 mg tablet 2 mg PO DAILY RF: 0 Combigan 0.2-0.5 % drops 1 drp ophthalmic (eye) DIRECTED RF: 0 fluticasone propionate 16 GM spray,suspension 1 spray Intranasal DAILY RF: 0 Referrals: Jeremie Gurrola MD [Primary Care Provider] - <Luisa Jessica DO - Last Filed: 06/11/18 11:10> Cosign ED Attending Cosignature Attestation: I was immediately available in the department for consultation. Documentation has been reviewed. I agree with assessment and plan.
[2018-06-10] MEDS: HEPARIN 5,000 UNIT/ML VIAL 5000 UNIT IV (13:59)
[2018-06-10] MEDS: HEPARIN DRIP 25,000 UNIT/500 ML IV.SOLN 20 UNIT IV (13:59)
[2018-06-10 14:01] LABS: Troponin I < 0.012 ng/mL (0.01-0.034)
--- NOTE | 2018-06-10 14:12 | PC.NURSE ---
PT with stress test yesterday and today. was sent to Er for positive stress test. Denies any pain at this time.
[2018-06-10 14:21] VITALS: BP 132/88; PULSE 64; RESP 10; O2SAT 97
[2018-06-10 14:30] VITALS: BP 129/75; PULSE 60; RESP 13; O2SAT 97
[2018-06-10 16:45] VITALS: BP 121/79; PULSE 68; RESP 14; O2SAT 95
[2018-06-10 17:30] VITALS: BP 151/94; PULSE 74; RESP 16; O2SAT 94
[2018-06-10 18:00] VITALS: BP 145/86; PULSE 74; RESP 18; O2SAT 95
== END 2018-06-10 18:38 | disposition short-term general hospital (02) ==
PROVIDERS: Emergency Provider Nurse Practitioner Family; PCP Family Medicine
DX: R94.39 Abnormal result of other cardiovascular function study (principal)
CPT/HCPCS: 36591; 71045; 80053; 81003; 82550; 83690; 84484; 85025; 93005; 96365; 96366; 96375; 99283; 99285; J1644

== ENCOUNTER → 2018-10-10 07:45 | Outpatient (CLI) | payer BC, SELFPAY ==
[2018-10-10 08:29] LABS: Hemoglobin A1C% w Est Avg Glu 5.7 % (4.0-6.0)
[2018-10-10 08:31] LABS: Add Manual Diff / Slide Review NO; Basophils Absolute Auto 0 /uL (0-100); Basophils Percent Auto 0.8 % (0-2); Eosinophils Absolute Auto 200 /uL (0-450); Eosinophils Percent Auto 2.5 % (2-4); Hematocrit 44.2 % (41-53); Hemoglobin 14.8 g/dL (13.5-17.5); Lymphocytes Absolute Auto 1900 /uL (1100-4500); Lymphocytes Percent Auto 30.7 % (25-40); Mean Corpuscular HGB Conc 33.4 % (30-36); Monocytes Absolute Auto 600 /uL (0-900); Neutrophils Absolute Auto 3500 /uL (1500-7000); Platelet Count 172 X10^3/uL (150-400); Red Blood Cell Count 4.75 X10^6/uL (4.5-5.9); Red Cell Distribution Width 13.9 % (11.6-14.8); White Blood Cell Count 6.2 X10^3/uL (4.5-11.0)
[2018-10-10 08:36] LABS: Alanine Aminotransferase 39 IU/L (21-72); Albumin 4.3 g/dL (3.5-5.0); Albumin Globulin Ratio 1.4 (1.0-2.8); Alkaline Phosphatase 69 U/L (38-126); Aspartate Aminotransferase 67 IU/L (17-59); BUN Creatinine Ratio 28.8 (6-22); Bilirubin Total 0.7 mg/dL (0.2-1.3); Blood Urea Nitrogen 23 mg/dL (9-20); C-Reactive Protein Quant 0.5 mg/dL (<1.0); Calcium 9.5 mg/dL (8.4-10.2); Carbon Dioxide 27 mmol/L (22-32); Chloride 102 mmol/L (98-107); Cholesterol 122 mg/dL (140-199); Estimated Glomerular Filt Rate > 60.0 mL/min (>60); Globulin 3.1 g/dL (1.7-4.1); Glucose 115 mg/dL (80-110); HDL Cholesterol 39 mg/dL (40-60); HEMOLYSIS < 15 (0-50); LDL Cholesterol Calculated 68 mg/dL (<100); Potassium 4.3 mmol/L (3.4-5.1); Sodium 137 mmol/L (137-145); Total Protein 7.4 g/dL (6.3-8.2); Triglycerides 73 mg/dL (35-150)
[2018-10-10 08:51] LABS: Vitamin D 25 Hydroxy (D3) 46.2 ng/mL (30.0-100.0)
[2018-10-10 08:52] LABS: Free T3, Triiodothyronine Free 4.13 pg/mL (2.77-5.27); Free T4, Direct Thyroxine 0.85 ng/dL (0.78-2.19)
[2018-10-10 09:09] LABS: Ferritin 74.5 ng/mL (17.9-464)
[2018-10-10 09:39] LABS: Folate 11.6 ng/mL (2.76-20.0); Vitamin B12 391 pg/mL (239-931)
[2018-10-12 16:15] LABS: PSA, Total 0.4 ng/mL (< 4.1)
[2018-10-13 09:17] LABS: Insulin Level Total 4.2 uIU/mL (2.0-19.6)
[2018-10-14 13:52] LABS: Homocysteine 10.2 umol/L (< 11.4)
== END ==
PROVIDERS: Visit Provider Acupuncturist
DX: I51.9 Heart disease, unspecified (principal); Z82.49 Family history of ischemic heart disease and other diseases of the circulatory system; R07.9 Chest pain, unspecified; Z13.6 Encounter for screening for cardiovascular disorders; Z13.1 Encounter for screening for diabetes mellitus
CPT/HCPCS: 36415; 80053; 80061; 82306; 82607; 82728; 82746; 83036; 83090; 83525; 84153; 84154; 84439; 84443; 84481; 85025; 86140

== ENCOUNTER → 2018-12-08 10:06 | Outpatient (CLI) | payer BC, SELFPAY ==
--- NOTE | 2018-12-08 | DI.RAD.S_ITS ---
PROCEDURE: XR CALCANEOUS LT MIN 2V INDICATIONS: LEFT HEEL PAIN TECHNIQUE: Two views of the calcaneus were acquired. COMPARISON: None. FINDINGS: Bones: No fractures or dislocations. No suspicious bony lesions. Soft tissues: No suspicious calcifications. Achilles tendon appears normal. IMPRESSION: Normal calcaneus plain films. Dictated by: Nolan Mckinney M.D. on 12/08/2018 at 11:05 Approved by: Nolan Mckinney M.D. on 12/08/2018 at 11:05
== END ==
PROVIDERS: PCP Student in an Organized Health Care Education/Training Program; Visit Provider Student in an Organized Health Care Education/Training Program
DX: M79.672 Pain in left foot (principal)
CPT/HCPCS: 73650

== ENCOUNTER → 2019-07-12 07:06 | Outpatient (CLI) | payer BC, SELFPAY ==
[2019-07-12 08:46] LABS: Alanine Aminotransferase 20 IU/L (<50); Albumin 4.6 g/dL (3.5-5.0); Albumin Globulin Ratio 1.4 (1.0-2.8); Alkaline Phosphatase 71 U/L (38-126); Aspartate Aminotransferase 25 IU/L (17-59); BUN Creatinine Ratio 23.9 (6-22); Bilirubin Total 0.5 mg/dL (0.2-1.3); Blood Urea Nitrogen 22 mg/dL (9-20); C-Reactive Protein Quant < 0.5 mg/dL (<1.0); Calcium 9.7 mg/dL (8.4-10.2); Carbon Dioxide 26 mmol/L (22-32); Chloride 105 mmol/L (98-107); Cholesterol 201 mg/dL (140-199); Estimated Glomerular Filt Rate > 60.0 mL/min (>60); Globulin 3.3 g/dL (1.7-4.1); Glucose 126 mg/dL (80-110); HDL Cholesterol 36 mg/dL (40-60); HEMOLYSIS < 15 (0-50); LDL Cholesterol Calculated 145 mg/dL (<100); Potassium 4.4 mmol/L (3.4-5.1); Sodium 140 mmol/L (137-145); Total Protein 7.9 g/dL (6.3-8.2); Triglycerides 102 mg/dL (35-150)
[2019-07-12 08:59] LABS: Free T3, Triiodothyronine Free 3.46 pg/mL (2.77-5.27); Free T4, Direct Thyroxine 0.96 ng/dL (0.78-2.19); Vitamin D 25 Hydroxy (D3) 65.1 ng/mL (30.0-100.0)
[2019-07-12 09:13] LABS: Thyroid Stimulating Hormone 3.82 uIU/mL (0.47-4.68)
[2019-07-12 09:16] LABS: Ferritin 57 ng/mL (18-464)
[2019-07-12 09:29] LABS: Vitamin B12 593 pg/mL (239-931)
== END ==
PROVIDERS: PCP Student in an Organized Health Care Education/Training Program; Referring Provider Acupuncturist; Visit Provider Acupuncturist
DX: E55.9 Vitamin D deficiency, unspecified (principal); D51.9 Vitamin B12 deficiency anemia, unspecified; E03.9 Hypothyroidism, unspecified; R94.6 Abnormal results of thyroid function studies; E11.9 Type 2 diabetes mellitus without complications; I51.9 Heart disease, unspecified; Z82.49 Family history of ischemic heart disease and other diseases of the circulatory system; E72.11 Homocystinuria; I25.84 Coronary atherosclerosis due to calcified coronary lesion
CPT/HCPCS: 36415; 80053; 80061; 82306; 82607; 82728; 83090; 84439; 84443; 84481; 84550; 86140

== ENCOUNTER → 2019-10-24 13:38 | Outpatient (CLI) | payer MEDICARE, SELFPAY ==
[2019-10-24 16:11] LABS: Thyroid Stimulating Hormone 3.31 uIU/mL (0.47-4.68)
== END ==
PROVIDERS: PCP Student in an Organized Health Care Education/Training Program; Referring Provider Acupuncturist; Visit Provider Acupuncturist
DX: E03.9 Hypothyroidism, unspecified (principal)
CPT/HCPCS: 36415; 84443

== ENCOUNTER → 2021-10-01 12:13 | Outpatient (CLI) | payer MEDICARE, OTHER, SELFPAY ==
[2021-10-01 13:03] LABS: BUN Creatinine Ratio 21.7 (6-22); Blood Urea Nitrogen 18 mg/dL (9-20); Calcium 8.9 mg/dL (8.4-10.2); Carbon Dioxide 21 mmol/L (22-32); Chloride 105 mmol/L (98-107); Estimated Glomerular Filt Rate > 60 mL/min (>60); Glucose 98 mg/dL (80-110); HEMOLYSIS 58 (0-50); Potassium 4.3 mmol/L (3.4-5.1); Sodium 136 mmol/L (137-145)
== END ==
PROVIDERS: PCP Family Medicine; Referring Provider Family Medicine; Visit Provider Family Medicine
DX: U07.1 COVID-19 (principal); I10 Essential (primary) hypertension
CPT/HCPCS: 36415; 80048

== ENCOUNTER → 2022-05-27 08:38 | Outpatient (CLI) | payer MEDICARE, OTHER, SELFPAY ==
--- NOTE | 2022-05-27 | DI.US.S_ITS ---
PROCEDURE: US ABD AORTA ANEURYSM SCREEN INDICATIONS: AAA SCREENING TECHNIQUE: Real time scanning was performed of the aorta and iliac arteries, with image documentation. COMPARISON: None. FINDINGS: Aorta: Proximal aortic diameter measures 2.5 cm. Mid-aorta measures 1.8 cm. Distal aortic diameter is 1.9 cm. Iliac arteries: Right common iliac artery measures 1.2 cm. Left common iliac artery measures 1.0 cm. IMPRESSION: Normal ultrasound of the abdominal aorta Approved by: Kam Tirado M.D. on 05/27/2022 at 15:03
== END ==
PROVIDERS: PCP Family Medicine; Referring Provider Internal Medicine; Visit Provider Internal Medicine
DX: Z13.6 Encounter for screening for cardiovascular disorders (principal)
CPT/HCPCS: 76706

== ENCOUNTER → 2024-12-04 09:43 | Outpatient (CLI) | payer MEDICARE, OTHER, SELFPAY ==
--- NOTE | 2024-12-04 09:50 | DI.NM.S_ITS ---
PROCEDURE: NM RAO PERF SPECT REST & STR Rest and exercise myocardial perfusion SPECT with gated imaging and ejection fraction RADIOPHARMACEUTICAL: 25.4 mCi Tc-99m sestamibi IV at rest and 25.5 mCi Tc-99m sestamibi IV at peak exercise. A twoday-protocol was performed. INDICATIONS: Chest pain, unspecified TECHNIQUE: Radiopharmaceutical was injected at peak stress test, and also at rest. SPECT images were obtained. SPECT myocardial perfusion images were displayed in short axis, horizontal long axis, and vertical long axis views. Gated images were reviewed using Meiaoju software. COMPARISON: None. CARDIAC STRESS: A standard Jean treadmill exercise tolerance test was performed by the patient under the supervision of an attending staff. The patient exercised for 9 minutes and 1 seconds; functional aerobic impairment (WILEY) is -27%. Hemodynamic data: There is normal blood pressure and heart rate response to exercise stress. Patient achieved 87% of maximum predicted heart rate at peak exercise. Symptoms: Patient developed mild chest and elbow discomfort near peak exercise and resolving within the first minute of recovery. EKG: During recovery, there were mild horizontal to downsloping ST depressions in the inferior leads, ST elevation in aVR lead, and moderate horitzontal to downsloping ST depressions in the anterolateral leads; no ectopy. FINDINGS: Raw data: There is good myocardial labeling by radiotracer. No significant motion artifacts. Xdyf-nk-gruoc ratio is 0.36 (normal is less than 0.38 for sestamibi tracer, and less than 0.50 for thallium tracer). Left ventricle function: Gated images demonstrate normal left ventricle wall thickening. No segmental wall motion abnormality. No transient ischemic dilation; TID is 0.59 (normal less than 1.3). The left ventricle resting end-diastolic volume is 91 mL. Left ventricle stress ejection fraction is 72%; normal values are above 45%. Myocardial perfusion: There is a severe fixed inferior wall defect that persists on prone imaging, suggesting prior infarct. No significant ischemia present SSS 12, SRS 10. IMPRESSION: Abnormal treadmill nuclear stress test. 1) There is a severe fixed inferior wall defect that persists on prone imaging, suggesting prior infarct. No significant ischemia present SSS 12, SRS 10. 2) Normal left ventricular size, wall motion, and systolic function (EF post stress 72%). 3) During recovery, there were mild horizontal to downsloping ST depressions in the inferior leads, ST elevation in aVR lead, and moderate horitzontal to downsloping ST depressions in the anterolateral leads. 4) Mild chest and elbow discomfort near peak exercise and resolving within the first minute of recovery 5) Good exercise tolerance (10.1METs, WILEY -27%). Target heart rate reached. Appropriate BP response to exercise. 6) Compared to the nuclear stress test done 06/09/2018, ischemia in the LAD territory is no longer present on this study. Dictated by: Kei Cool MD on 12/07/2024 at 16:48 Approved by: Kei Cool MD on 12/07/2024 at 16:54
== END ==
LOC: NUCM 09:45
PROVIDERS: PCP Family Medicine; Referring Provider Family Medicine; Visit Provider Family Medicine
DX: R07.9 Chest pain, unspecified (principal); R94.39 Abnormal result of other cardiovascular function study; Z86.79 Personal history of other diseases of the circulatory system
CPT/HCPCS: 78452; 93017; A9502

== ENCOUNTER → 2024-12-13 14:03 | Outpatient (CLI) | payer MEDICARE, OTHER, SELFPAY ==
--- NOTE | 2024-12-13 14:04 | DI.US.S_ITS ---
PROCEDURE: US CAROTID DOPPLER BI INDICATIONS: STENOSIS TECHNIQUE: Color and pulse Doppler interrogation was performed of both carotid systems, with image documentation and velocity measurements. COMPARISON: None. FINDINGS: Stenosis calculations are based on SRU (Society of Radiologists in Ultrasound) criteria. Right side: Common carotid artery peak systolic velocity: 93 cm/sec. Internal carotid artery peak systolic velocity: 318 cm/sec. Internal carotid artery end diastolic velocity: 118 cm/sec. External carotid artery peak systolic velocity: 113 cm/sec. ICA/CCA peak systolic ratio: 3.4 . Wall scale imaging description: Atherosclerotic plaques Percent internal carotid artery stenosis: 70 percent to near occlusion . Vertebral artery: Flow direction is antegrade. Left side: Common carotid artery peak systolic velocity: 102 cm/sec. Internal carotid artery peak systolic velocity: 91 cm/sec. Internal carotid artery end diastolic velocity: 25 cm/sec. External carotid artery peak systolic velocity: 104 cm/sec. ICA/CCA peak systolic ratio: 0.6 . Wall scale imaging description: Atherosclerotic plaques Percent internal carotid artery stenosis: Less than 50 percent . Vertebral artery: Flow direction is antegrade. IMPRESSION: 1. In the right carotid artery, there is 70 percent stenosis to near occlusion based on peak systolic velocity criteria. 2. In the left carotid artery, there is less than 50 percent stenosis based on peak systolic velocity criteria. 3. Antegrade vertebral arteries. Dictated by: Gary Magallon M.D. on 12/13/2024 at 15:33 Approved by: Gary Magallon M.D. on 12/13/2024 at 15:39
== END ==
PROVIDERS: PCP Family Medicine; Referring Provider Family Medicine; Visit Provider Family Medicine
DX: I65.23 Occlusion and stenosis of bilateral carotid arteries (principal)
CPT/HCPCS: 93880